=== PATIENT | female | born 1970 | race Hispanic/Latino ===

== ENCOUNTER 2019-07-15 00:50 | Emergency (ER) | payer BC, SELFPAY ==
[2019-07-15] MEDS ORDERED: Metoclopramide HCl 10 MG/2 ML VIAL ONE (01:23)
[2019-07-15] MEDS ORDERED: diphenhydrAMINE 50 MG/ML VIAL ONE (01:23)
[2019-07-15] MEDS ORDERED: Ketorolac Tromethamine 30 MG/ML VIAL ONE (01:23)
[2019-07-15 01:28] LABS: Bilirubin Negative (Negative); Blood, Urine Negative (Negative); Clarity Clear (Clear); Glucose, Urine (Dipstick) Greater than 1000 mg/dL (Negative); Leukocyte Negative Leu/uL (Negative); Nitrite Negative (Negative); Protein, Urine (Dipstick) Negative (Neg-Trace); Urobilinogen Normal mg/dL (Less than 2)
== END 2019-07-15 02:45 | disposition home or self-care (01) ==
LOC: ERS 00:50
DX: R51 Headache (principal); E11.9 Type 2 diabetes mellitus without complications; Z79.84 Long term (current) use of oral hypoglycemic drugs
CPT/HCPCS: 36416; 81003; 96365; 96375; J1200; J1885; J2765

== ENCOUNTER 2023-02-13 21:23 | Emergency (ER) | payer OTHER, SELFPAY ==
[2023-02-13] MEDS ORDERED: Ketorolac Tromethamine 30 MG/ML VIAL ONE (23:46)
== END 2023-02-14 01:04 | disposition home or self-care (01) ==
LOC: ERS 21:23
DX: M54.16 Radiculopathy, lumbar region (principal); E11.9 Type 2 diabetes mellitus without complications
CPT/HCPCS: 36416; 93005; 96372; J1885